=== PATIENT | male | born 1985 | race Caucasian/White ===

== ENCOUNTER 2019-04-26 09:38 | Emergency (ER) | payer BC ==
[~2019-04-26] VITALS: Ht 177.8 cm; Wt 77.3 kg
[2019-04-26] MEDS ORDERED: thiamine 100mg/ml 2ml inj. IV ONE (10:25)
[2019-04-26] MEDS ORDERED: folic acid 1mg/0.2ml inj IV ONE (10:25)
[2019-04-26] MEDS ORDERED: normal saline 1000ML IV soln IV ONE (10:25)
[2019-04-26 10:28] LABS: BASOPHILS % (AUTO) 0.4 % (0-1); EOSINOPHILS % (AUTO) 0 % (0-6); HEMATOCRIT 48.4 % (42.0-52.0); HEMOGLOBIN 16.4 g/dl (14.0-17.9); LYMPHOCYTES # (AUTO) 1.1 X10'3 (1.1-4.8); LYMPHOCYTES % (AUTO) 8.9 % (21-51); MEAN CORPUSCULAR HEMOGLOBIN 27.4 PG (27.0-31.0); MEAN CORPUSCULAR HGB CONC 33.9 g/dL (33.0-36.5); MEAN CORPUSCULAR VOLUME 80.8 FL (78-98); MEAN PLATELET VOLUME 6.9 FL (7.4-10.4); MONOCYTES # (AUTO) 0.5 X10'3 (0-0.9); MONOCYTES % (AUTO) 4.3 % (2-12); NEUTROPHILS # (AUTO) 10.8 X10'3 (1.8-7.7); NEUTROPHILS % (AUTO) 86.4 % (42-75); PLATELET COUNT 379 X10'3 (140-440); RED BLOOD COUNT 5.99 X10'6 (4.70-6.10); RED CELL DISTRIBUTION WIDTH 14.4 % (11.5-14.5); WHITE BLOOD COUNT 12.5 X10'3 (4.5-11.0)
[2019-04-26 10:42] LABS: ALANINE AMINOTRANSFERASE 37 U/L (12-78); ALBUMIN 3.8 G/DL (3.4-5.0); ALBUMIN/GLOBULIN RATIO 1.2 (1.1-1.5); ALKALINE PHOSPHATASE 76 IU/L (46-116); ANION GAP 14 (8-16); ASPARTATE AMINO TRANSFERASE 30 U/L (10-37); BILIRUBIN,TOTAL 1.5 MG/DL (0.1-1.0); BLOOD UREA NITROGEN 12 MG/DL (7-18); BUN/CREATININE RATIO 11.1 (5.4-32.0); CALCIUM 8.3 MG/DL (8.5-10.1); CHLORIDE 97 MMOL/L (99-107); CREATININE 1.08 MG/DL (0.60-1.10); GLUCOSE 165 MG/DL (70-104); SODIUM 139 MMOL/L (135-145); TOTAL PROTEIN 7.1 G/DL (6.4-8.2); eGFR 78 ML/MIN
[2019-04-26 10:46] LABS: POTASSIUM 2.6 MMOL/L (3.5-5.1)
[2019-04-26] MEDS ORDERED: potassium Cl 20 mEq SR tablet PO STA (10:48)
[2019-04-26 10:57] LABS: ETHANOL 0.225 GM/DL (0.0-0.010)
[2019-04-26] MEDS: potassium Cl 10 mEq/100mL bag IV SCH ×2 (11:19→12:51)
[2019-04-26] MEDS ORDERED: acetaminophen 325mg tablet PO ONE (11:40)
[2019-04-26] MEDS ORDERED: ondansetron/PF 4mg/2ml inj IV ONE (11:40)
[2019-04-26] MEDS ORDERED: proCHLORperazine 10 MG/2 ml inj IV ONE (12:50)
[2019-04-26] MEDS ORDERED: metoclopramide 5 mg/ml inj IV ONE (13:50)
[2019-04-26 14:21] VITALS: BP 153/85
== END 2019-04-26 14:23 | disposition home or self-care (01) ==
LOC: ER 09:39
DX: F10.129 Alcohol abuse with intoxication, unspecified (principal); E87.6 Hypokalemia; E86.0 Dehydration
CPT/HCPCS: 36415; 80053; 80320; 82948; 84484; 85025; 85610; 93005; 96361; 96365; 96366; 96375; 99284; J0780; J2405; J2765; J3411; J3480; J3490; J7030